=== PATIENT | male | born 1960 | race Caucasian/White ===

== ENCOUNTER 2025-03-05 16:35 | Emergency (ER) | payer MEDICARE ==
[2025-03-05] MEDS ORDERED: Lidocaine 1% w/Epinephrine 1:100K 20 ML VIAL ONE (17:01)
[2025-03-05] MEDS ORDERED: Sulfameth/Trimethoprim DS 800-160mg TAB ONE (17:48)
== END 2025-03-05 17:50 | disposition home or self-care (01) ==
LOC: MADERS 16:35
DX: L02.214 Cutaneous abscess of groin (principal); F17.210 Nicotine dependence, cigarettes, uncomplicated; Z55.6 Problems related to health literacy
CPT/HCPCS: 10060; 87070; 87205